=== PATIENT | female | born 1955 ===

== ENCOUNTER → 2022-02-04 | Outpatient (CLI) | payer MEDICARE, OTHER ==
[~2022-02-04] VITALS: Ht 162.6 cm; Wt 74.8 kg
== END | disposition home or self-care (01) ==
LOC: Rad HDHVI 13:25
PROVIDERS: ATTEND Internal Medicine
DX: I10 Essential (primary) hypertension (principal); E78.5 Hyperlipidemia, unspecified; I49.3 Ventricular premature depolarization; F17.210 Nicotine dependence, cigarettes, uncomplicated
CPT/HCPCS: 78452; 93017; 96374; A9500

== ENCOUNTER → 2022-02-11 | Outpatient (CLI) | payer MEDICARE, OTHER | END | disposition home or self-care (01) | LOC: Rad HDHVI 11:07 | PROVIDERS: ATTEND Internal Medicine | DX: I10 Essential (primary) hypertension (principal) | CPT/HCPCS: 93306 ==

== ENCOUNTER → 2022-11-22 | Outpatient (CLI) | payer MEDICARE, MEDICAID ==
[~2022-11-22] MED LIST: PIPERACILLIN-TAZO 4.5GM 100 ML IV ONE
[2022-11-22 15:39] VITALS: BP 124/70
[2022-11-22 16:59] VITALS: BP 141/72
== END | disposition home or self-care (01) ==
LOC: CHF HDHVI 15:54
PROVIDERS: ATTEND Internal Medicine Cardiovascular Disease
DX: N39.0 Urinary tract infection, site not specified (principal); I10 Essential (primary) hypertension; E78.5 Hyperlipidemia, unspecified; Z87.891 Personal history of nicotine dependence
CPT/HCPCS: 96365; G0463; J2543

== ENCOUNTER → 2022-12-30 | Outpatient (CLI) | payer MEDICARE, MEDICAID ==
[~2022-12-30] MED LIST changes: +IOHEXOL 350 MG/ML 100ML IJ ONE; -PIPERACILLIN-TAZO 4.5GM 100 ML IV ONE; +READI-CAT 2 (BARIUM SULF)(VANILLA SMOOTHIE) 450ML ONE
[2022-12-30 13:13] VITALS: BP 126/76
[2022-12-30 13:31] VITALS: BP 120/64
== END | disposition home or self-care (01) ==
LOC: Rad HDHVI 13:02
PROVIDERS: ATTEND Internal Medicine Cardiovascular Disease
DX: N20.0 Calculus of kidney (principal); R91.8 Other nonspecific abnormal finding of lung field; R10.9 Unspecified abdominal pain; Z90.49 Acquired absence of other specified parts of digestive tract
CPT/HCPCS: 74177; G0463; Q9967

== ENCOUNTER → 2023-02-01 | Outpatient (CLI) | payer MEDICARE, MEDICAID ==
[~2023-02-01] MED LIST changes: -READI-CAT 2 (BARIUM SULF)(VANILLA SMOOTHIE) 450ML ONE
[2023-02-01 15:37] VITALS: BP 126/77; PULSE 81; RESP 18; O2SAT 97
[2023-02-01 16:06] VITALS: BP 135/40; PULSE 84; RESP 18; O2SAT 97
== END | disposition home or self-care (01) ==
LOC: Rad HDHVI 15:23
PROVIDERS: ATTEND Internal Medicine Cardiovascular Disease
DX: I25.10 Atherosclerotic heart disease of native coronary artery without angina pectoris (principal); R91.8 Other nonspecific abnormal finding of lung field; R51.9 Headache, unspecified; N20.0 Calculus of kidney; Z90.49 Acquired absence of other specified parts of digestive tract
CPT/HCPCS: 70470; 71260; G0463; Q9967

== ENCOUNTER → 2023-04-06 | Outpatient (CLI) | payer MEDICARE, MEDICAID | END | disposition home or self-care (01) | LOC: Rad HDHVI 16:01 | PROVIDERS: ATTEND Internal Medicine Cardiovascular Disease | DX: Z01.818 Encounter for other preprocedural examination (principal); R06.02 Shortness of breath; M79.89 Other specified soft tissue disorders; N39.0 Urinary tract infection, site not specified; D53.8 Other specified nutritional anemias | CPT/HCPCS: 71046 ==

== ENCOUNTER → 2024-08-13 | Outpatient (CLI) | payer MEDICARE, MEDICAID ==
[~2024-08-13] VITALS: Ht 162.6 cm; Wt 72.6 kg
[~2024-08-13] MED LIST changes: +ADENOSINE 61 MG in GIVE UN-DILUTED 0 ML IV ONE; +ADENOSINE 90 MG/30 ML INJ IV ONE; -IOHEXOL 350 MG/ML 100ML IJ ONE
== END | disposition home or self-care (01) ==
LOC: Rad HDHVI 13:58
PROVIDERS: ATTEND Internal Medicine Cardiovascular Disease
DX: Z01.810 Encounter for preprocedural cardiovascular examination (principal); I11.0 Hypertensive heart disease with heart failure; I50.23 Acute on chronic systolic (congestive) heart failure; I25.2 Old myocardial infarction; E78.00 Pure hypercholesterolemia, unspecified
CPT/HCPCS: 78452; 93005; 96374; 96375; A9500; J0153

== ENCOUNTER → 2024-08-15 | Outpatient (CLI) | payer MEDICARE, MEDICAID | END | disposition home or self-care (01) | LOC: Rad HDHVI 13:48 | PROVIDERS: ATTEND Internal Medicine Cardiovascular Disease | DX: I11.0 Hypertensive heart disease with heart failure (principal); I50.23 Acute on chronic systolic (congestive) heart failure | CPT/HCPCS: 93306 ==

== ENCOUNTER 2025-04-22 12:38 | Outpatient (CLI) | payer MEDICARE, MEDICAID ==
--- NOTE | 2025-04-22 15:50 | DVHSR ---
APPROVED REPORT EXAM: Two-dimensional and M-mode echocardiogram with Doppler and color Doppler. DIMENSIONS LVDd3.7 (3.8-5.7cm)LA (2D)3.8 (1.9-4.0cm)Aortic Root3.2 (2.0-3.7cm) LVDs2.6 (2.5-4.0cm)LA (MM) (1.9-4.0cm)Aortic Cusp Exc1.6 (1.5-2.0cm) EF (%) 60.0 (55-70%)Rt. Atrium3.8 (1.9-4.0cm)Asc. Aorta cm IVSd1.1 (0.7-1.1cm)RV (D) (1.8-2.4cm) PWd1.0 (0.7-1.1cm) Mitral Valve MitralMitral Stenosis E wave0.88m/sMV Mean GR.mmHg A wave1.27m/sMV Peak GR.mmHg E/A ratio0.72D MVAcm2 DECEL [id number] 1/2 [place] Aortic Valve Aortic ValveAortic Stenosis V11.14m/[place] Mean GR.5mmHg V21.82m/[place] Peak GR.13mmHg LVOT Diameter2.1 (1.8-2.4cm)Doppler AVA2.17cm2 Pulmonic Valve V21.23m/s Tricuspid Valve TR Velocity2.59m/s [id number] LEFT VENTRICLE The left ventricle is normal size. The left ventricle is normal in structure and function. The Ejection Fraction is within normal limits. RIGHT VENTRICLE The right ventricle is normal size. ATRIA The left atrial size is normal. The right atrium size is normal. The interatrial septum is intact with no evidence for an atrial septal defect. MITRAL VALVE The mitral valve is normal in structure. Mitral regurgitation is trace. PULMONIC VALVE The pulmonic valve is not well visualized. TRICUSPID VALVE The tricuspid valve is grossly normal. There is trace to mild tricuspid regurgitation. Right ventricular systolic pressure is 30-40 mmHg. AORTIC VALVE The aortic valve opens well. No aortic regurgitation is present. GREAT VESSELS The aortic root is normal size. PERICARDIAL EFFUSION There is no pericardial effusion. Conclusion NL 2D ECHO
== END 2025-04-22 17:00 | disposition home or self-care (01) ==
LOC: Rad HDHVI 12:38
PROVIDERS: ATTEND Internal Medicine Cardiovascular Disease
DX: I07.1 Rheumatic tricuspid insufficiency (principal); I11.0 Hypertensive heart disease with heart failure; I50.33 Acute on chronic diastolic (congestive) heart failure
CPT/HCPCS: 93306